=== PATIENT | male | born 1975 | race Caucasian/White ===

== ENCOUNTER → 2021-04-23 | Outpatient (CLI) | payer OTHER | LOC: KOH-I 13:30 | DX: M51.16 Intervertebral disc disorders with radiculopathy, lumbar region (principal); M48.061 Spinal stenosis, lumbar region without neurogenic claudication; M43.17 Spondylolisthesis, lumbosacral region; M25.78 Osteophyte, vertebrae | CPT/HCPCS: 72131 ==

== ENCOUNTER → 2021-11-18 | Outpatient (CLI) | payer OTHER | LOC: KOH-I 14:54 | DX: M51.36 Other intervertebral disc degeneration, lumbar region (principal); M43.16 Spondylolisthesis, lumbar region; M48.061 Spinal stenosis, lumbar region without neurogenic claudication | CPT/HCPCS: 72148 ==

== ENCOUNTER 2022-01-13 05:37 | Inpatient (IN) | payer OTHER ==
[~2022-01-13] VITALS: Ht 177.8 cm; Wt 73.9 kg
[~2022-01-13 05:37] MED LIST: ASPIRIN EC81 MG PO; CARVEDILOL12.5 MG PO; LISINOPRIL10 MG PO; WARFARIN SODIUM5 MG PO
[2022-01-13 15:15] LABS: HEMOGLOBIN 9.9 gm/dl (14.0-17.5); RED BLOOD COUNT 3.27 M/UL (4.20-5.50); WHITE BLOOD COUNT 7.5 K/UL (4.5-11.0)
[2022-01-13 16:13] LABS: BUN/CREATININE RATIO 9 (0-10)
[2022-01-13] MEDS ORDERED: WARFARIN SODIU7.5 MG PO (16:42)
[2022-01-14 05:15] LABS: BUN/CREATININE RATIO 13 (0-10)
[2022-01-14 07:11] LABS: WHITE BLOOD COUNT 7.7 K/UL (4.5-11.0)
[2022-01-14 07:16] LABS: RED BLOOD COUNT 2.3 M/UL (4.20-5.50)
[2022-01-14 07:19] LABS: HEMOGLOBIN 6.9 gm/dl (14.0-17.5)
[2022-01-15 05:21] LABS: HEMOGLOBIN 8.6 gm/dl (14.0-17.5); WHITE BLOOD COUNT 8.2 K/UL (4.5-11.0)
[2022-01-15 05:28] LABS: RED BLOOD COUNT 2.8 M/UL (4.20-5.50)
[2022-01-15 09:14] LABS: HEMOGLOBIN A1C 5.7 % (4.8-5.6)
[2022-01-15 14:22] LABS: BUN/CREATININE RATIO 11 (0-10)
[2022-01-15 15:41] LABS: HEMOGLOBIN 8.7 gm/dl (14.0-17.5)
[2022-01-16 05:44] LABS: BUN/CREATININE RATIO 10 (0-10)
[2022-01-16 05:46] LABS: HEMOGLOBIN 8.1 gm/dl (14.0-17.5); RED BLOOD COUNT 2.68 M/UL (4.20-5.50); WHITE BLOOD COUNT 8.2 K/UL (4.5-11.0)
[2022-01-17 04:04] LABS: HEMOGLOBIN 8.3 gm/dl (14.0-17.5); RED BLOOD COUNT 2.71 M/UL (4.20-5.50); WHITE BLOOD COUNT 7.3 K/UL (4.5-11.0)
[2022-01-17 04:26] LABS: BUN/CREATININE RATIO 8 (0-10)
[2022-01-18 04:11] LABS: HEMOGLOBIN 7.8 gm/dl (14.0-17.5); RED BLOOD COUNT 2.57 M/UL (4.20-5.50); WHITE BLOOD COUNT 5.6 K/UL (4.5-11.0)
[2022-01-18 04:38] LABS: BUN/CREATININE RATIO 9 (0-10)
[2022-01-18] MEDS ORDERED: PERCOCET 5-3251 EACH PO (11:50)
[2022-01-18] MEDS ORDERED: BENZONATATE200 MG PO (11:50)
== END 2022-01-18 13:11 | disposition home or self-care (01) | DRG 454 ==
LOC: OR 05:37 → CCU 16:01 → OR 16:01 → CCU 16:22
PROVIDERS: Internal Medicine; ADMIT Orthopaedic Surgery
PROC: 0SG0071 Fusion of Lumbar Vertebral Joint with Autologous Tissue Substitute, Posterior Approach, Posterior Column, Open Approach (ICD-10-PCS; 2022-01-13)
PROC: 0SG30AJ Fusion of Lumbosacral Joint with Interbody Fusion Device, Posterior Approach, Anterior Column, Open Approach (ICD-10-PCS; 2022-01-13)
PROC: 0SG3071 Fusion of Lumbosacral Joint with Autologous Tissue Substitute, Posterior Approach, Posterior Column, Open Approach (ICD-10-PCS; 2022-01-13)
PROC: 01NR0ZZ Release Sacral Nerve, Open Approach (ICD-10-PCS; 2022-01-13)
PROC: 01NB0ZZ Release Lumbar Nerve, Open Approach (ICD-10-PCS; 2022-01-13)
PROC: 0SB20ZZ Excision of Lumbar Vertebral Disc, Open Approach (ICD-10-PCS; 2022-01-13)
PROC: 0SB40ZZ Excision of Lumbosacral Disc, Open Approach (ICD-10-PCS; 2022-01-13)
PROC: 3E0U0GB Introduction of Recombinant Bone Morphogenetic Protein into Joints, Open Approach (ICD-10-PCS; 2022-01-13)
PROC: 0SG00AJ Fusion of Lumbar Vertebral Joint with Interbody Fusion Device, Posterior Approach, Anterior Column, Open Approach (ICD-10-PCS; 2022-01-13 07:30)
PROC: 30233N1 Transfusion of Nonautologous Red Blood Cells into Peripheral Vein, Percutaneous Approach (ICD-10-PCS; principal; 2022-01-14)
DX: M48.07 Spinal stenosis, lumbosacral region (principal); D62 Acute posthemorrhagic anemia; I10 Essential (primary) hypertension; I25.10 Atherosclerotic heart disease of native coronary artery without angina pectoris; I08.0 Rheumatic disorders of both mitral and aortic valves; M43.17 Spondylolisthesis, lumbosacral region; E87.6 Hypokalemia; E83.39 Other disorders of phosphorus metabolism; R73.9 Hyperglycemia, unspecified; M54.17 Radiculopathy, lumbosacral region; I44.7 Left bundle-branch block, unspecified; M51.36 Other intervertebral disc degeneration, lumbar region; E78.5 Hyperlipidemia, unspecified; Z95.4 Presence of other heart-valve replacement; Z79.82 Long term (current) use of aspirin; Z79.899 Other long term (current) drug therapy; Z79.01 Long term (current) use of anticoagulants; Z82.49 Family history of ischemic heart disease and other diseases of the circulatory system
CPT/HCPCS: 36415; 36430; 71045; 72100; 72110; 76000; 80048; 80053; 82962; 83036; 83605; 83735; 84100; 84132; 85007; 85014; 85018; 85025; 85027; 85610; 86140; 93005; 97116; 97116-GP-CQ; 97161; 97166; 97535; C1713; C1762; C1781; J0690; J1040; J1100; J1170; J1200; J1650; J1885; J2250; J2405; J2704; J3010; J3370; J3475; J7040; P9016